=== PATIENT | male | born 1955 | race Caucasian/White ===

== ENCOUNTER → 2021-01-07 | Outpatient (CLI) | payer OTHER | END | disposition home or self-care (01) | LOC: CFH 15:30 | PROVIDERS: ATTEND Family Medicine | DX: N20.0 Calculus of kidney (principal) | CPT/HCPCS: 76770 ==

== ENCOUNTER 2021-02-22 08:52 | Outpatient (CLI) | payer OTHER | END 2021-02-22 23:59 | disposition home or self-care (01) | LOC: RAD 08:52 | PROVIDERS: ATTEND Urology | DX: N20.0 Calculus of kidney (principal); M51.36 Other intervertebral disc degeneration, lumbar region | CPT/HCPCS: 74018 ==